=== PATIENT | male | born 1935 | race Caucasian/White ===

== ENCOUNTER 2016-09-21 07:43 | Observation (INO) | payer MEDICARE ==
[~2016-09-21] VITALS: Ht 182.9 cm; Wt 81.6 kg
[2016-09-21] MEDS ORDERED: OPTIRAY 350 100 ML VIAL HMH IV ONE (07:44)
[2016-09-21] MEDS ORDERED: ASPIRIN 81 MG CHEW TAB ONE (07:50)
[2016-09-21] MEDS ORDERED: SODIUM CHLORIDE 0.9% 1,000 ML IV SCH (12:20)
[2016-09-21] MEDS ORDERED: NITROGLYCERIN 50 MG/250 ML IV PRN (12:20)
[2016-09-21] MEDS ORDERED: ONDANSETRON 4 MG VIAL IV PRN (12:20)
[2016-09-21] MEDS ORDERED: DOCUSATE SOD 100 MG CAP PO PRN (12:20)
[2016-09-21] MEDS ORDERED: SODIUM CHLORIDE 0.9% FLUSH BAG 500 ML IV PRN (12:20)
[2016-09-21] MEDS ORDERED: LORAZEPAM 0.5 MG TAB PO PRN (12:20)
[2016-09-21] MEDS ORDERED: ACETAMINOPHEN 325 MG TAB PO PRN (12:20)
[2016-09-21] MEDS ORDERED: TEMAZEPAM 7.5 MG CAP PO PRN (12:20)
[2016-09-21] MEDS ORDERED: TRAMADOL 50 MG TAB PO PRN (12:20)
[2016-09-21] MEDS ORDERED: MORPHINE 2 MG/ML SYR IV PRN (12:20)
[2016-09-21] MEDS ORDERED: NITROGLYCERIN SL 0.4 MG TAB SL PRN (12:20)
[2016-09-21] MEDS ORDERED: SALINE FLUSH 10 ML FLUSH PRN (12:20)
[2016-09-21 12:27] VITALS: BP_SYST 180; RESP 16; TEMP 98.3
[2016-09-21 12:33] VITALS: Ht 182.9 cm; Wt 81.6 kg
[2016-09-21 15:15] VITALS: BP_SYST 134; RESP 16; TEMP 98.3
[2016-09-21 16:00] VITALS: BP_SYST 134
[2016-09-21 19:21] VITALS: BP_SYST 134; RESP 16; TEMP 98.3
[2016-09-21] MEDS ORDERED: SALINE FLUSH 10 ML FLUSH SCH (20:00)
[2016-09-22] MEDS ORDERED: ASPIRIN EC 81 MG TAB PO SCH (08:00)
== END 2016-09-21 18:14 | disposition home or self-care (01) ==
LOC: ENRESERVTM → ENRESERVDT → ER 07:43 → ENPENDDIS 11:15 → EMR 11:15 → PCU 12:08 → MC2 14:49 → PCU 14:52
PROVIDERS: ADMIT Specialist; ATTEND Specialist
CPT/HCPCS: 71010 ×2; 71260 ×2; 80053 ×2; 82550 ×2; 83735 ×2; 84484 ×2; 85025 ×2; 85379 ×2; 85610 ×2; 85730 ×2; 93005 ×2; 94799; 99285; G0378; Q9967